=== PATIENT | female | born 1980 | race Caucasian/White ===

== ENCOUNTER 2020-01-26 17:03 | Emergency (ER) | payer OTHER, SELFPAY ==
[2020-01-26] VITALS (9 sets, daily range): BP systolic 191–233; BP diastolic 88–127; PULSE 81–112; RESP 10–29; TEMP 37.2; O2SAT 97–98; BMI 43.2
[2020-01-26] MEDS: KETOROLAC 60 MG/2 ML VIAL 30 MG IM (17:43)
--- NOTE | 2020-01-26 17:57 | ED_ITS ---
HPI - Headache <DESTINI Wallis - Last Filed: 01/26/20 20:39> General Chief Complaint: Headache Stated Complaint: Sharp Pain Base of Head, Lt Side Time Seen by Provider: 01/26/20 17:12 Mode of arrival: Ambulatory Limitations: no limitations History of Present Illness HPI Narrative: 40-year-old female presents to the emergency department complaining of gradual onset left sided neck pain that she is up the side of her neck and into the front of her forehead. She states this pain has been ongoing for the past week and denies significant relief of pain with with Tylenol or ibuprofen. Patient states the pain is worse when she moves her head to the right. Patient reports a sharp stabbing 4/10. Patient denies any blurry vision, vision changes, severe pain, sudden onset of pain, syncope, chest pain, fevers, shortness of breath, IV drug use, nausea, vomiting, diarrhea, or any other concerns. Patient denies any trauma to the area or history of neck issues. Related Data Previous Rx's Medication Instructions Recorded albuterol sulfate [Ventolin HFA] 2 puff INH QID #1 ea 10/12/17 amoxicillin 875 mg-potassium 1 tab PO BID #20 tab 07/27/19 clavulanate 125 mg tablet cyclobenzaprine 10 mg PO BEDTIME PRN #14 tab 01/26/20 Allergies Allergy/AdvReac Type Severity Reaction Status Date / Time No Known Drug Allergies Allergy Verified 01/26/20 17:23 Review of Systems <DESTINI Wallis - Last Filed: 01/26/20 20:39> Review of Systems Narrative: REVIEW OF SYSTEMS: GENERAL: Denies fever or chills. HENT: Reports headache, see HPI. EYES: No loss of vision, double vision, eye pain, or irritation. CARDIOVASCULAR: No chest pain or syncope. RESPIRATORY: No shortness of breath or cough. GASTROINTESTINAL: No nausea, vomiting, diarrhea, or constipation. GENITOURINARY: No flank pain or dysuria. MUSCULOSKELETAL: No pain, weakness, or deformities. INTEGUMENTARY: No rash, lesions, or pruritus. NEURO: No numbness, tingling, memory loss, or confusion. PSYCH: No behavior or mood changes. Patient History <DESTINI Wallis - Last Filed: 01/26/20 20:39> Surgical History Status post delivery (09/07/98) Status post delivery (05/05/02) Family History Mother Age: 64 Diabetes mellitus Hypertension MS (multiple sclerosis) Social History Smoking Status: Unknown if ever smoked Smoking Status: Unknown if ever smoked alcohol intake frequency: holidays/special occasions only Substance Use Type: does not use Exam <DESTINI Wallis - Last Filed: 01/26/20 20:39> Initial Vital Signs Initial Vital Signs: Vital Signs Temperature 98.9 F 01/26/20 17:13 Pulse Rate 112 H 01/26/20 17:13 Respiratory Rate 15 01/26/20 17:13 Blood Pressure 233/127 H 01/26/20 17:13 Pulse Oximetry 98 01/26/20 17:13 PHYSICAL EXAMINATION: GENERAL: Well groomed, alert, and cooperative. Answers questions promptly and appropriately. Vital signs noted. HENT: Normocephalic. Ear canals patent. Oral mucosa is pink and moist. Tendern ess to palpation of left occipital area. EYES: PERRLA, EOMIs, conjunctiva pink, sclera white, no periorbital swelling. NECK: Full ROM, no midline or spinal tenderness. CARDIOVASCULAR: S1 and S2 sounds normal. Regular rate and rhythm, no murmurs, clicks, or bruits. RESPIRATORY: Normal respiratory rate, trachea midline, airway patent. No stridor, nasal flaring or accessory muscle use. Lungs are clear in all oneil without wheeze, rhonchi, or crackles. MUSCULOSKELETAL: Normal gait and coordination. Equal tone and mass bilaterally. Equal strength bilaterally to upper and lower extremities. No spinal tenderness. EXTREMITIES: CMS intact. Moves all extremities. SKIN: Warm, dry, soft, appropriate color for ethnicity. No lesions, rashes, or wounds to visualized areas. NEURO: Alert and Oriented X 3. GCS: 15. Good coordination. No ataxia, or sensory deficits, or cognitive issues. Cranial Nerves: II: Visual oneil grossly intact. III & IV & : EOMIs V: Able to open and close jaw. VII: Facial movements symetrical. Able to close eyelids tightly. VIII: Hearing grossly intact, adequate balance. X: Uvula pronation intact. XI: Patient is able to shrug shoulders. XII: Patient is able to stick out tongue and move it side to side. PSYCH: Appropriate affect and mood. <Christian Cabrera DO - Last Filed: 01/26/20 21:44> Initial Vital Signs Initial Vital Signs: Vital Signs Temperature 98.9 F 01/26/20 17:13 Pulse Rate 112 H 01/26/20 17:13 Respiratory Rate 15 01/26/20 17:13 Blood Pressure 233/127 H 01/26/20 17:13 Pulse Oximetry 98 01/26/20 17:13 Course <DESTINI Wallis - Last Filed: 01/26/20 20:39> Course Course Narrative: Patient reports significant improvement of pain after administration of Toradol. Discussed using muscle relaxers to help with tension headache, patient was given a prescription as she drove herself to the hospital. Orders Ordered: ED Orders 01/26/20 17:17 Urine Culture Stat Urine Microscopic Stat 01/26/20 17:42 EKG-12 Lead Routine Discontinued Medications Ketorolac Tromethamine (Toradol) 30 mg IM NOW ONE Stop: 01/26/20 17:33 Last Admin: 01/26/20 17:43 Dose: 30 mg Documented by: KORINA Vital Signs Vital signs: Vital Signs - 8 hr 01/26/20 17:13 01/26/20 17:24 01/26/20 17:30 Temperature 98.9 F Pulse Rate 112 H 106 H 103 H Respiratory Rate 15 28 H 17 Blood Pressure 233/127 H Pulse Oximetry 98 98 98 01/26/20 17:31 01/26/20 18:00 01/26/20 18:01 Temperature Pulse Rate 101 H 81 88 Respiratory Rate 28 H 27 H 29 H Blood Pressure 226/106 H 202/88 H Pulse Oximetry 98 97 97 01/26/20 18:30 01/26/20 18:31 01/26/20 18:59 Temperature Pulse Rate 83 84 96 H Respiratory Rate 22 10 L Blood Pressure 203/93 H 191/102 H Pulse Oximetry 97 97 98 <Christian Cabrera DO - Last Filed: 01/26/20 21:44> Orders Ordered: ED Orders 01/26/20 17:17 Urine Culture Stat Urine Microscopic Stat 01/26/20 17:42 EKG-12 Lead Routine Discontinued Medications Ketorolac Tromethamine (Toradol) 30 mg IM NOW ONE Stop: 01/26/20 17:33 Last Admin: 01/26/20 17:43 Dose: 30 mg Documented by: KORINA Vital Signs Vital signs: Vital Signs - 8 hr 01/26/20 17:13 01/26/20 17:24 01/26/20 17:30 Temperature 98.9 F Pulse Rate 112 H 106 H 103 H Respiratory Rate 15 28 H 17 Blood Pressure 233/127 H Pulse Oximetry 98 98 98 01/26/20 17:31 01/26/20 18:00 01/26/20 18:01 Temperature Pulse Rate 101 H 81 88 Respiratory Rate 28 H 27 H 29 H Blood Pressure 226/106 H 202/88 H Pulse Oximetry 98 97 97 01/26/20 18:30 01/26/20 18:31 01/26/20 18:59 Temperature Pulse Rate 83 84 96 H Respiratory Rate 22 10 L Blood Pressure 203/93 H 191/102 H Pulse Oximetry 97 97 98 MDM - Headache <Adriana DESTINI Gr - Last Filed: 01/26/20 20:39> Medical Records Attestation: I reviewed the patient's medical records. Lab Data Attestation: I reviewed the patient's lab results. Labs: Lab Results 01/26/20 Range/Units 17:17 Urine RBC 0-1/hpf (0-5/HPF) Urine WBC 5-10/hpf H (0-5/HPF) Ur Squamous Epith Cells 1-5 /hpf (0-5/HPF) Ur Transition Epith Cell 1-5/hpf (0-5/HPF) Urine Bacteria Few (2-10) H (None) Ur Culture Indicated? Specimen cultured Point of Care Testing Test Results Negative Urine Dip Bedside Urine Glucose Negative Bedside Urine Bilirubin - Negative Bedside Urine Ketone - Negative Urine Specific Buhl 1.020 Bedside Urine Occult Blood - Negative Bedside Urine pH 6.0 Bedside Urine Protein +/- 15 Bedside Urine Urobilinogen - Negative Bedside Urine Nitrite - Negative Bedside Urine Leukocytes +++ 500 Esterase ECG Data Interpretation: 1742: Sinus rhythm, rate 88, AL interval 140, QTC 476. No ST elevation or ST depression. No ectopy. No T-wave abnormality. EKG also viewed by Dr. Tejada per protocol. [facility] Narrative Medical decision making narrative: 40-year-old female presents to the emergency department for left-sided headache. Due to patient's description of pain and improvement with Toradol, I suspect patient's pain is most likely related to a tension headache. Differential also includes neck strain as pain is worse when she rotates her head to the right. Less likely hypertensive crisis as patient is neurologically intact, pain decreased after Toradol, and Patient has a history of elevated hypertension as noted in July per [facility] visit, no vision changes. Patient was counseled about her blood pressure, informed to follow up with her primary care provider and monitor blood pressure closely as it is elevated today. Unsure exact cause of slight tachycardia noted on admission, however rate was significantly decreased when patient was sitting in bed for a few minutes. This may due to ambulation with obesity or dehydration, patient was given p.o. fluids which improved her rate is well. No signs of infection such as fevers, erythema, significant tenderness, or hemodynamic instability. Return precautions given for new or worsening symptoms. Patient agreed to plan of care as understanding. <Christian Cabrera, DO - Last Filed: 01/26/20 21:44> Lab Data Labs: Lab Results 01/26/20 Range/Units 17:17 Urine RBC 0-1/hpf (0-5/HPF) Urine WBC 5-10/hpf H (0-5/HPF) Ur Squamous Epith Cells 1-5 /hpf (0-5/HPF) Ur Transition Epith Cell 1-5/hpf (0-5/HPF) Urine Bacteria Few (2-10) H (None) Ur Culture Indicated? Specimen cultured Point of Care Testing Test Results Negative Urine Dip Bedside Urine Glucose Negative Bedside Urine Bilirubin - Negative Bedside Urine Ketone - Negative Urine Specific Buhl 1.020 Bedside Urine Occult Blood - Negative Bedside Urine pH 6.0 Bedside Urine Protein +/- 15 Bedside Urine Urobilinogen - Negative Bedside Urine Nitrite - Negative Bedside Urine Leukocytes +++ 500 Esterase Discharge Plan Departure Patient Disposition: Home Clinical Impression: Headache Qualifiers: Headache type: tension-type Headache chronicity pattern: acute headache Intractability: not intractable Qualified Code(s): G44.209 - Tension-type headache, unspecified, not intractable Neck strain Qualifiers: Encounter type: initial encounter Qualified Code(s): S16.1XXA - Strain of muscle, fascia and tendon at neck level, initial encounter Discharge Date/Time: 01/26/20 19:00 Instructions: DI for Headache Activity Restrictions/Additional Instructions: Thank you for entrusting me with your care today. As discussed, have given you a prescription for a muscle relaxer. This medication can make you drowsy, do not drive while taking this medication. Your prescription was sent to [facility] in [place]. Suggest taking Tylenol and ibuprofen over the next few days every 8 hours around the clock despite significant pain this will help your headache decrease in severity. Please follow-up with your primary care provider in 1-2 weeks for further evaluation. Return emergency department for any new or worsening symptoms such as blurry vision, facial droop, high fevers, uncontrollable vomiting, or any other concerns. Prescriptions: New cyclobenzaprine 10 mg tablet 10 mg PO BEDTIME PRN (Reason: muscle spasm) Qty: 14 RF: 0 No Action amoxicillin-pot clavulanate [Augmentin] 875-125 mg tablet 1 tab PO BID Qty: 20 RF: 0 albuterol sulfate [Ventolin HFA] 90 MCG/PUFF HFA aerosol inhaler 2 puff INH QID Qty: 1 RF: 0 Referrals: Kaylah Tamayo ARNP [Primary Care Provider] - <Christian Cabrera DO - Last Filed: 01/26/20 21:44> Cosign ED Attending Cosignature Attestation: Dr Cabrera Co-Sign Statement: I was available for consultation during this patient's emergency department visit. This chart is signed by myself for administrative purposes only. I did not have direct contact with this patient during this visit. They were seen independently by the APC.
[2020-01-26 17:59] LABS: Bacteria Urine Few (2-10); Culture Indicated Urine Specimen Cultured; RBC Urine 0-1/HPF (0-5/HPF); Squamous Epithelial Cell Urine 1-5 /HPF (0-5/HPF); Transitional Epi Cells Urine 1-5/HPF (0-5/HPF); WBC Urine 5-10/HPF (0-5/HPF)
== END 2020-01-26 19:00 | disposition home or self-care (01) ==
PROVIDERS: Emergency Provider Nurse Practitioner; Family Provider Internal Medicine; PCP Internal Medicine
DX: G44.209 Tension-type headache, unspecified, not intractable (principal); S16.1XXA Strain of muscle, fascia and tendon at neck level, initial encounter
CPT/HCPCS: 81003; 81015; 81025; 87086; 93005; 93010; 96372; 99283; J1885

== ENCOUNTER → 2020-02-02 09:32 | Outpatient (CLI) | payer OTHER, SELFPAY ==
[2020-02-02 10:28] LABS: Add Manual Diff / Slide Review NO; Basophils Absolute Auto 100 /uL (0-100); Basophils Percent Auto 1.3 % (0-2); Eosinophils Absolute Auto 300 /uL (0-450); Eosinophils Percent Auto 4.5 % (2-4); Hematocrit 31.9 % (36-46); Lymphocytes Absolute Auto 1400 /uL (1100-4500); Lymphocytes Percent Auto 19.4 % (25-40); Mean Corpuscular HGB Conc 31.5 % (30-36); Mean Corpuscular Hemoglobin 24.6 PG (26-34); Mean Corpuscular Volume 78.2 fL (80-100); Monocytes Absolute Auto 500 /uL (0-900); Monocytes Percent Auto 7.3 % (3-14); Neutrophils Absolute Auto 4800 /uL (1500-7000); Neutrophils Percent Auto 67.5 % (50-75); Platelet Count 244 X10^3/uL (150-400); Red Blood Cell Count 4.07 X10^6/uL (4.0-5.2); Red Cell Distribution Width 18.3 % (11.6-14.8); White Blood Cell Count 7.1 X10^3/uL (4.5-11.0)
[2020-02-02 11:03] LABS: Alanine Aminotransferase 32 IU/L (<35); Albumin Globulin Ratio 1.2 (1.0-2.8); Alkaline Phosphatase 99 U/L (38-126); Aspartate Aminotransferase 38 IU/L (14-36); BUN Creatinine Ratio 14.8 (6-22); Bilirubin Total 0.4 mg/dL (0.2-1.3); Blood Urea Nitrogen 9 mg/dL (7-17); Calcium 8.9 mg/dL (8.4-10.2); Carbon Dioxide 30 mmol/L (22-32); Chloride 104 mmol/L (98-107); Cholesterol 166 mg/dL (140-199); Estimated Glomerular Filt Rate > 60.0 mL/min (>60); Globulin 3.3 g/dL (1.7-4.1); Glucose 106 mg/dL (70-100); HDL Cholesterol 32 mg/dL (40-60); HEMOLYSIS < 15 (0-50); LDL Cholesterol Calculated 101 mg/dL (<100); Potassium 5.1 mmol/L (3.4-5.1); Sodium 138 mmol/L (137-145); Total Protein 7.3 g/dL (6.3-8.2); Triglycerides 165 mg/dL (35-150)
[2020-02-02 11:31] LABS: TSH w/ Reflex to FT4 1.88 uIU/mL (0.47-4.68)
== END ==
PROVIDERS: Family Provider Internal Medicine; PCP Registered Nurse Diabetes Educator; Referring Provider Registered Nurse Diabetes Educator; Visit Provider Registered Nurse Diabetes Educator
DX: I10 Essential (primary) hypertension (principal)
CPT/HCPCS: 36415; 80053; 80061; 84443; 85025

== ENCOUNTER → 2020-04-01 14:44 | Outpatient (ROUT) | payer OTHER, SELFPAY ==
[2020-04-02 17:36] LABS: COVID19 Sendout Not Detected (Not Detected)
== END ==
PROVIDERS: Family Provider Internal Medicine; PCP Registered Nurse Diabetes Educator; Visit Provider Internal Medicine
DX: Z11.59 Encounter for screening for other viral diseases (principal)
CPT/HCPCS: 87635

== ENCOUNTER → 2020-04-29 07:36 | Outpatient (CLI) | payer OTHER, SELFPAY ==
[2020-04-29 08:37] LABS: Add Manual Diff / Slide Review NO; Basophils Absolute Auto 100 /uL (0-100); Basophils Percent Auto 1.2 % (0-2); Eosinophils Absolute Auto 400 /uL (0-450); Eosinophils Percent Auto 4.6 % (2-4); Hematocrit 35.9 % (36-46); Hemoglobin 11.9 g/dL (12.0-16.0); Lymphocytes Absolute Auto 1900 /uL (1100-4500); Lymphocytes Percent Auto 24.4 % (25-40); Mean Corpuscular Hemoglobin 29.9 PG (26-34); Mean Corpuscular Volume 90.5 fL (80-100); Monocytes Absolute Auto 600 /uL (0-900); Monocytes Percent Auto 7.3 % (3-14); Neutrophils Absolute Auto 4900 /uL (1500-7000); Neutrophils Percent Auto 62.5 % (50-75); Platelet Count 233 X10^3/uL (150-400); Red Blood Cell Count 3.97 X10^6/uL (4.0-5.2); Red Cell Distribution Width 16.5 % (11.6-14.8); White Blood Cell Count 7.8 X10^3/uL (4.5-11.0)
[2020-04-29 08:54] LABS: Alanine Aminotransferase 21 IU/L (<35); Albumin 4.1 g/dL (3.5-5.0); Alkaline Phosphatase 86 U/L (38-126); Aspartate Aminotransferase 24 IU/L (14-36); BUN Creatinine Ratio 21.5 (6-22); Bilirubin Total 0.4 mg/dL (0.2-1.3); Blood Urea Nitrogen 14 mg/dL (7-17); Calcium 8.6 mg/dL (8.4-10.2); Carbon Dioxide 25 mmol/L (22-32); Chloride 106 mmol/L (98-107); Cholesterol 164 mg/dL (140-199); Estimated Glomerular Filt Rate > 60.0 mL/min (>60); Glucose 107 mg/dL (70-100); HDL Cholesterol 23 mg/dL (40-60); HEMOLYSIS < 15 (0-50); LDL Cholesterol Calculated 107 mg/dL (<100); Potassium 4.1 mmol/L (3.4-5.1); Sodium 138 mmol/L (137-145); Total Protein 8.1 g/dL (6.3-8.2); Triglycerides 171 mg/dL (35-150)
[2020-04-29 09:43] LABS: Hemoglobin A1C% w Est Avg Glu 5.1 % (4.0-6.0)
== END ==
PROVIDERS: Family Provider Internal Medicine; PCP Registered Nurse Diabetes Educator; Referring Provider Registered Nurse Diabetes Educator; Visit Provider Registered Nurse Diabetes Educator
DX: E66.9 Obesity, unspecified (principal); E78.5 Hyperlipidemia, unspecified; E88.81 Metabolic syndrome and other insulin resistance; I10 Essential (primary) hypertension; R73.01 Impaired fasting glucose
CPT/HCPCS: 36415; 80053; 80061; 83036; 85025

== ENCOUNTER → 2020-05-10 09:52 | Outpatient (CLI) | payer OTHER, SELFPAY ==
--- NOTE | 2020-05-10 10:02 | DIET.PN ---
Dietary Progress Note Assessment: 40y F referred to nutrition by PCP for dietary strategies to manage metabolic syndrome. Pt is using medication to control HTN, has elevated FBG 103, elevated LDL 107 H, low HDL 23 L c BMI 42.3. 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 Pt feels she is overeating carbohydrates per using phone candida in past indicating low kcal intake but high CHO intake. Pt has made several changes since seeing PCP: not so many tortillas, using brown rice instead of white, trying to drink more water, switching from breve mocha to 2% milk mocha c half the chocolate Usual Work Day: wakes 530 630am: iced 2% mocha c half chocolate 10am: at work, piece toast c butter and jelly (from home) 3pm: cold sandwich- lettuce, tomato, cucumbers; leftovers from dinner, sometimes chips gets off work 730pm go home, sometimes grab snack otherwise just to bed goes to sleep 10:30pm, good sleep quality Usual Day off: wakes 730am goes get coffee 1130 lunch: sandwich, leftovers Dinners: chicken deepa c noodles, chicken mole c rice, chicken fajitas Pt endorses boredom eating and not having will power with break room treats. Pt lives c 18y daughter who is picky eater and likes fast food: [employer], [place] salad Pt not currently doing intentional exercise, is looking into [employer] at the local gym. HT: 5'6 WT: 262# (weight goal 200#) UBW: 276# BMI: 42.3 Labs: TG 171 H, TC 164, LDL 107 H, HDL 23 L, FBG 103 H, A1c 5.1 Nutrition Diagnosis: altered nutrition related laboratory values r/t undesirable food choices and physical inactivity aeb pt dx c metabolic dz c associated labs listed above, BMI 42.3, pt reports high intake carbohydrate foods (tortillas, rice, chocolate, chips, bread), pt has no intentional physical activity. Interventions: 1. Educated pt on healthy plate balance using handout including 1/4 PRO, 1/4 CHO, and 1/2 F/V. Used food models to optimize current meals of pts to better fit balanced plate. Pt will go home and use this method to problem solve meals and snacks. 2. Educated pt on hunger scale. Pt reports often waiting too long to eat then making poor choices that are high in CHO and overeating leading to shame thoughts. Encouraged pt to use Hunger Scale to eat when 3 and stop when 8 most of the time. Pt reports eating at 5 when bored, discussed finding alternate activities when feeling this emotion. 3. To address low HDL and high LDL, encouraged pt to switch to avocado oil and olive oil for all cooking. 4. Pt reports not drinking enough water, doesn't mind water, but curious of flavorings which would be healthy to add to water to encourage more intake, provided sample of true lemon. 5. Pt reports high CHO snack intake, collaborated c pt on ways to have healthy quick items on hand which will support health. Focus on pro and F/V options including yogurt, cheese, f/v c healthy dip like yogurt ranch, hummus, avocado. 6. To address high lipids and body weight, encouraged increased intake of soluble fiber. Pt enjoys beans, will consume more black beans throughout the week and will try hummus. 7. To make better meal planning choices, introduced pt to method for meal planning and eating well website to follow balanced plate approach. 8. Pt enjoys smoothies but unsure how to make them so they follow plate balance, provided smoothie formula handout. Monitoring/Evaluations: f/u in 4w to assess progress and problem solve barriers.
== END ==
PROVIDERS: Family Provider Internal Medicine; PCP Registered Nurse Diabetes Educator; Referring Provider Registered Nurse Diabetes Educator; Visit Provider Registered Nurse Diabetes Educator
DX: E88.81 Metabolic syndrome and other insulin resistance (principal); I10 Essential (primary) hypertension; R73.9 Hyperglycemia, unspecified; E66.9 Obesity, unspecified; Z68.41 Body mass index [BMI] 40.0-44.9, adult; Z71.3 Dietary counseling and surveillance
CPT/HCPCS: 97802

== ENCOUNTER → 2020-06-07 10:19 | Outpatient (CLI) | payer OTHER, SELFPAY ==
--- NOTE | 2020-06-07 10:26 | DIET.PN ---
Dietary Progress Note Assessment: 40y F f/u c RD for metabolic disease. Pt is net -18# since her PCP visit and -3# since our visit 1mo ago. Pt reports good progress since last visit 1mo ago. Pt weighs herself daily, has not reverted back to her old coffee drinks (subbed 2% milk for breve, half chocolate), and is drinking only 2-3 coffees per week rather than 7. 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 She feels this is actually helping her progress with weight loss and healthy eating as she sees people ordering fast food to their home in evenings and late at night. Pt has been eating fewer carbs trying to maintain plate balance. Pt purchased avocado oil and olive oil for cooking. BP is still a little high but HR is in 70s. Pt has not initiated an intentional work out routine yet, holding off on gym membership due to covid shutdown. HT: 5'6 WT: 259# (-3# since last visit) Interventions: 1. Encouraged pt in her good work so far. Pt is showing good insight and making appropriate changes for retirement success. 2. Discussed adding physical activity routine to help further improvement. Discussed options on youtube, [email or web address], using step counter. Pt goal is to trial several options to create a plan that will work for her. Monitoring/Evaluations: f/u in 2mo to assess progress and problem solve barriers.
== END ==
PROVIDERS: Family Provider Internal Medicine; PCP Registered Nurse Diabetes Educator; Referring Provider Registered Nurse Diabetes Educator; Visit Provider Registered Nurse Diabetes Educator
DX: E88.9 Metabolic disorder, unspecified (principal); R03.0 Elevated blood-pressure reading, without diagnosis of hypertension; Z71.3 Dietary counseling and surveillance
CPT/HCPCS: 97803

== ENCOUNTER → 2020-08-02 09:59 | Outpatient (CLI) | payer OTHER, SELFPAY ==
[2020-08-02 10:45] LABS: Add Manual Diff / Slide Review NO; Basophils Absolute Auto 100 /uL (0-100); Basophils Percent Auto 1.2 % (0-2); Eosinophils Absolute Auto 300 /uL (0-450); Eosinophils Percent Auto 4.1 % (2-4); Hematocrit 36.2 % (36-46); Hemoglobin 11.9 g/dL (12.0-16.0); Lymphocytes Absolute Auto 1600 /uL (1100-4500); Lymphocytes Percent Auto 20.7 % (25-40); Mean Corpuscular HGB Conc 32.9 % (30-36); Mean Corpuscular Hemoglobin 30.3 PG (26-34); Mean Corpuscular Volume 92.1 fL (80-100); Monocytes Absolute Auto 600 /uL (0-900); Monocytes Percent Auto 7.3 % (3-14); Neutrophils Absolute Auto 5100 /uL (1500-7000); Neutrophils Percent Auto 66.7 % (50-75); Platelet Count 218 X10^3/uL (150-400); Red Blood Cell Count 3.93 X10^6/uL (4.0-5.2); Red Cell Distribution Width 15.1 % (11.6-14.8); White Blood Cell Count 7.6 X10^3/uL (4.5-11.0)
[2020-08-02 11:04] LABS: BUN Creatinine Ratio 18.1 (6-22); Blood Urea Nitrogen 13 mg/dL (7-17); Calcium 8.7 mg/dL (8.4-10.2); Carbon Dioxide 30 mmol/L (22-32); Chloride 103 mmol/L (98-107); Estimated Glomerular Filt Rate > 60.0 mL/min (>60); Glucose 101 mg/dL (70-100); HEMOLYSIS < 15 (0-50); Potassium 4.6 mmol/L (3.4-5.1); Sodium 136 mmol/L (137-145)
== END ==
PROVIDERS: Family Provider Internal Medicine; PCP Registered Nurse Diabetes Educator; Referring Provider Registered Nurse Diabetes Educator; Visit Provider Registered Nurse Diabetes Educator
DX: E88.81 Metabolic syndrome and other insulin resistance (principal); I10 Essential (primary) hypertension; R73.01 Impaired fasting glucose
CPT/HCPCS: 36415; 80048; 83036; 85025

== ENCOUNTER → 2020-08-02 10:00 | Outpatient (CLI) | payer OTHER, SELFPAY ==
--- NOTE | 2020-08-02 10:16 | DIET.PN ---
Dietary Progress Note 40y F attending third nutrition visit for management of metabolic disease. Pt got labs drawn before our meeting. Pt has been progressing very well throughout the past few months. She has drastically changed her eating habits with no more sugary coffees, drastically reduced fast food intake, intentional intake of healthier fats (avocado, avocado oil, olive oil), and moderating her previously high refined carb diet (rice or tortillas, not both, etc). Pt feels the holidays weren't great, but she has gotten back on track. Pt continues to work [employer] in evenings which helps her to curb evening boredom eating and decreases sedentary time. Pt has been tracking her steps with her iwatch and intentionally increases them if she notices they are low. Pt got new phone so has not been tracking for past week because the [employer] is helping her to sync the devices. RD provided pt with waistband step counter to use until her phone is back in order. Nutrition Diagnosis: Resolving altered nutrition related laboratory values r/t undesirable food choices and physical inactivity aeb pt dx c metabolic dz c associated labs listed above, BMI 42.3, pt reports high intake carbohydrate foods (tortillas, rice, chocolate, chips, bread), pt has no intentional physical activity. Pt's goal she is actively working on now is fitting in regular physical activity and creating habits around that activity. Considering joining gym. F/u in 3mo to assess progress and problem solve barriers. Pt would like to pair RD visits with lab draws.
== END ==
PROVIDERS: Family Provider Internal Medicine; PCP Registered Nurse Diabetes Educator; Referring Provider Registered Nurse Diabetes Educator; Visit Provider Registered Nurse Diabetes Educator
DX: E88.81 Metabolic syndrome and other insulin resistance (principal); I10 Essential (primary) hypertension; R73.01 Impaired fasting glucose
CPT/HCPCS: 36415; 80048; 83036; 85025; 97803

== ENCOUNTER → 2021-04-24 08:20 | Outpatient (CLI) | payer OTHER, SELFPAY ==
[2021-04-24 09:18] LABS: Hematocrit 36.8 % (36-46); Mean Corpuscular HGB Conc 32.6 % (30-36); Mean Corpuscular Volume 91.8 fL (80-100); Platelet Count 232 X10^3/uL (150-400); Red Blood Cell Count 4.01 X10^6/uL (4.0-5.2); White Blood Cell Count 6.3 X10^3/uL (4.5-11.0)
[2021-04-24 09:48] LABS: Alanine Aminotransferase 31 IU/L (<35); Albumin 4.2 g/dL (3.5-5.0); Albumin Globulin Ratio 1.2 (1.0-2.8); Alkaline Phosphatase 79 U/L (38-126); Aspartate Aminotransferase 32 IU/L (14-36); BUN Creatinine Ratio 26.4 (6-22); Bilirubin Total 0.4 mg/dL (0.2-1.3); Blood Urea Nitrogen 14 mg/dL (7-17); Carbon Dioxide 29 mmol/L (22-32); Chloride 103 mmol/L (98-107); Cholesterol 189 mg/dL (140-199); Estimated Glomerular Filt Rate > 60.0 mL/min (>60); Globulin 3.5 g/dL (1.7-4.1); Glucose 103 mg/dL (70-100); HDL Cholesterol 28 mg/dL (40-60); HEMOLYSIS < 15 (0-50); LDL Cholesterol Calculated 114 mg/dL (<100); Potassium 4.4 mmol/L (3.4-5.1); Sodium 138 mmol/L (137-145); Total Protein 7.7 g/dL (6.3-8.2); Triglycerides 237 mg/dL (35-150)
[2021-04-24 10:18] LABS: TSH w/ Reflex to FT4 3.12 uIU/mL (0.47-4.68)
== END ==
PROVIDERS: Family Provider Internal Medicine; PCP Registered Nurse Diabetes Educator; Referring Provider Registered Nurse Diabetes Educator; Visit Provider Registered Nurse Diabetes Educator
DX: D50.9 Iron deficiency anemia, unspecified (principal); E78.5 Hyperlipidemia, unspecified; E88.81 Metabolic syndrome and other insulin resistance; I10 Essential (primary) hypertension; R73.01 Impaired fasting glucose
CPT/HCPCS: 36415; 80053; 80061; 83036; 84443; 85027

== ENCOUNTER → 2021-05-28 08:54 | Outpatient (CLI) | payer OTHER, SELFPAY | PROVIDERS: Family Provider Internal Medicine; PCP Registered Nurse Diabetes Educator; Visit Provider Registered Nurse Diabetes Educator | DX: R10.9 Unspecified abdominal pain (principal) | CPT/HCPCS: 87077; 87086; 87186 ==

== ENCOUNTER → 2021-10-09 08:34 | Outpatient (CLI) | payer OTHER, SELFPAY ==
[2021-10-09 09:34] LABS: Hematocrit 35.8 % (36-46); Hemoglobin 12.2 g/dL (12.0-16.0); Mean Corpuscular Hemoglobin 31.2 PG (26-34); Mean Corpuscular Volume 91.6 fL (80-100); Platelet Count 213 X10^3/uL (150-400); Red Blood Cell Count 3.91 X10^6/uL (4.0-5.2); Red Cell Distribution Width 15.1 % (11.6-14.8); White Blood Cell Count 6.4 X10^3/uL (4.5-11.0)
[2021-10-09 09:36] LABS: Hemoglobin A1C% w Est Avg Glu 4.9 % (4.0-6.0)
[2021-10-09 10:14] LABS: Alanine Aminotransferase 29 IU/L (<35); Albumin 4.2 g/dL (3.5-5.0); Albumin Globulin Ratio 1.1 (1.0-2.8); Alkaline Phosphatase 74 U/L (38-126); Aspartate Aminotransferase 33 IU/L (14-36); BUN Creatinine Ratio 17.7 (6-22); Bilirubin Total 0.4 mg/dL (0.2-1.3); Blood Urea Nitrogen 11 mg/dL (7-17); Calcium 8.5 mg/dL (8.4-10.2); Carbon Dioxide 26 mmol/L (22-32); Chloride 105 mmol/L (98-107); Cholesterol 190 mg/dL (140-199); Estimated Glomerular Filt Rate > 60.0 mL/min (>60); Globulin 3.8 g/dL (1.7-4.1); Glucose 108 mg/dL (70-100); HDL Cholesterol 28 mg/dL (40-60); HEMOLYSIS < 15 (0-50); LDL Cholesterol Calculated 131 mg/dL (<100); Potassium 4.2 mmol/L (3.4-5.1); Sodium 140 mmol/L (137-145); Triglycerides 157 mg/dL (35-150)
[2021-10-09 12:42] LABS: TSH w/ Reflex to FT4 2.34 uIU/mL (0.47-4.68)
== END ==
PROVIDERS: Family Provider Internal Medicine; PCP Registered Nurse Diabetes Educator; Referring Provider Registered Nurse Diabetes Educator; Visit Provider Registered Nurse Diabetes Educator
DX: D50.9 Iron deficiency anemia, unspecified (principal); E78.5 Hyperlipidemia, unspecified; I10 Essential (primary) hypertension; R73.01 Impaired fasting glucose
CPT/HCPCS: 36415; 80053; 80061; 83036; 84443; 85027

== ENCOUNTER → 2022-06-03 06:44 | Outpatient (CLI) | payer OTHER, SELFPAY ==
--- NOTE | 2022-06-03 06:46 | DI.US.S_ITS ---
PROCEDURE: US PELVIC COMPLETE INDICATIONS: HEAVY MENSES TECHNIQUE: Real-time scanning was performed of the pelvic organs, with image documentation. Additional endovaginal scanning was necessary due to incomplete visualization of the adnexal and endometrial structures by transabdominal scanning. COMPARISON: None. FINDINGS: Uterus: Uterus is anteverted and normal in size at 8.8 x 5.4 x 5.8 cm. The myometrium is homogeneous. The endometrium measures 14.2 mm combined thickness. The cervix appears normal. No suspicious vascular flow. Ovaries: The right ovary measures 2.0 x 3.8 x 1.9 cm, with a calculated ovarian volume of 7.7 cc. The left ovary measures 3.9 x 2.1 x 2.4 cm, with a calculated ovarian volume of 10.0 cc. The ovaries have a normal sonographic appearance. Both ovaries contain a single dominant follicle. Left follicle measures up to 2.4 cm on the right measures 1.8 cm in maximal diameter. No adnexal masses are seen. Other: No pathologic free abdominal or pelvic fluid. IMPRESSION: 1. Endometrium is of normal thickness for premenopausal female. 2. No suspicious uterine mass. 3. Normal ovaries each containing a dominant follicle. We strive to produce accurate, complete, and clear reports of imaging services. To assist us in improving patient care, this report was composed using standard report templates and voice recognition software. Therefore, it may contain abnormal punctuation, insertions and/or omissions. Occasional wrong-word or sound-alike substitutions may occur. Though we review the report and make efforts to correct it, we do recommend that the report be read carefully in proper context to recognize any text inaccuracies. Dictated by: Vilma Foote M.D. on 06/03/2022 at 10:29 Approved by: Vilma Foote M.D. on 06/03/2022 at 10:31
== END ==
PROVIDERS: Family Provider Internal Medicine; PCP Registered Nurse Diabetes Educator; Referring Provider Obstetrics & Gynecology; Visit Provider Obstetrics & Gynecology
DX: N92.0 Excessive and frequent menstruation with regular cycle (principal)
CPT/HCPCS: 76830; 76856

== ENCOUNTER → 2022-09-11 09:02 | Outpatient (CLI) | payer OTHER, SELFPAY ==
[2022-09-11 09:56] LABS: Hematocrit 35.2 % (36-46); Hemoglobin 11.6 g/dL (12.0-16.0); Mean Corpuscular Hemoglobin 30.2 PG (26-34); Mean Corpuscular Volume 91.4 fL (80-100); Platelet Count 238 X10^3/uL (150-400); Red Blood Cell Count 3.85 X10^6/uL (4.0-5.2); White Blood Cell Count 6.5 X10^3/uL (4.5-11.0)
[2022-09-11 10:05] LABS: Alanine Aminotransferase 26 IU/L (<35); Albumin 4.2 g/dL (3.5-5.0); Albumin Globulin Ratio 1.2 (1.0-2.8); Alkaline Phosphatase 85 U/L (38-126); Aspartate Aminotransferase 26 IU/L (14-36); BUN Creatinine Ratio 16.7 (6-22); Bilirubin Total 0.4 mg/dL (0.2-1.3); Blood Urea Nitrogen 11 mg/dL (7-17); Calcium 8.7 mg/dL (8.4-10.2); Carbon Dioxide 27 mmol/L (22-32); Chloride 102 mmol/L (98-107); Cholesterol 186 mg/dL (140-199); Estimated Glomerular Filt Rate > 60 mL/min (>60); Globulin 3.6 g/dL (1.7-4.1); Glucose 105 mg/dL (70-100); HDL Cholesterol 29 mg/dL (40-60); HEMOLYSIS < 15 (0-50); LDL Cholesterol Calculated 115 mg/dL (<100); Potassium 4.5 mmol/L (3.4-5.1); Sodium 138 mmol/L (137-145); Total Protein 7.8 g/dL (6.3-8.2); Triglycerides 210 mg/dL (35-150)
[2022-09-11 10:28] LABS: TSH w/ Reflex to FT4 3.23 uIU/mL (0.47-4.68)
[2022-09-11 12:03] LABS: Hemoglobin A1C% w Est Avg Glu 4.9 % (4.0-6.0)
== END ==
PROVIDERS: Family Provider Internal Medicine; PCP Registered Nurse Diabetes Educator; Referring Provider Registered Nurse Diabetes Educator; Visit Provider Registered Nurse Diabetes Educator
DX: D50.9 Iron deficiency anemia, unspecified (principal); E78.5 Hyperlipidemia, unspecified; E88.81 Metabolic syndrome and other insulin resistance; I10 Essential (primary) hypertension; R73.01 Impaired fasting glucose
CPT/HCPCS: 36415; 80053; 80061; 83036; 84443; 85027

== ENCOUNTER 2022-12-21 08:12 | Day surgery (SDC) | payer OTHER, SELFPAY ==
[2022-12-15 12:24] VITALS: BMI 42.1
[2022-12-21] VITALS (9 sets, daily range): BP systolic 104–120; BP diastolic 49–83; PULSE 89–115; RESP 12–20; TEMP 36.2–36.8; O2SAT 90–100; BMI 42.1
--- NOTE | 2022-12-21 | PATH_ITS ---
[facility] Accession Number: [id number] No. of containers..01 Tissue . 01 Material submitted: . endometrium - ENDOMETRIAL CURRETTAGE . 01 Diagnosis: Endometrial Curettage: Portions of secretory endometrium; negative for significant atypia. Some endometrial fragments demonstrate prominent vessels, suggestive of polyp, if clinical and imaging studies are concordant. MRV 12/25/2022 1238 Local . 01 Electronically signed: . Carolina Hays MD, Pathologist NPI- [id number] . 01 Gross description: . ENDOMETRIAL CURRETTAGE: Received in formalin are minute fragments of mucoid and hemorrhagic material measuring 1.5 x 1.5 x 0.4 cm in aggregate. Submitted in toto in 1 cassette. /LUIS 12/23/2022 0040 Local . 01 Pathologist provided ICD-10: N92.0, N84.0 . 01 CPT . 882227 Specimen Comment: A courtesy copy of this report has been sent to [phone] Performed at: 01 [facility] [address] [place] [address], [place], [place] [id number] MD Александр Maddox MD Phone: [phone]
[2022-12-21] MEDS: LACTATED RINGERS 1,000 ML 100 ML IV (08:44)
--- NOTE | 2022-12-21 09:42 | SUR.OPER ---
Lithotomy on padded OR bed, head on pillow, arms secured on padded arm boards at <90 degrees abduction. Legs secured in padded yellow fins stirrups.
--- NOTE | 2022-12-21 09:50 | PM.PREOP ---
Pre-operative Note COVID-19 Criteria for continued procedure: Non-surgical alternatives not available or appropriate per current SOC Interval Note History & Physical reviewed/Exam performed by Physician: Yes Changes to H&P: No H&P completed within 30 days and has changed as indicated here:: 11/24/22
--- NOTE | 2022-12-21 10:57 | SUR.PHASEI ---
Dr Johnson notified that patient complains of SOB and feels like lungs are a little tight. See order for albuterol.
[2022-12-21] MEDS: ALBUTEROL 2.5 MG/3 ML NEB (ADULT) INH (10:58)
--- NOTE | 2022-12-21 11:07 | P.HPOB_ITS ---
History of Present Illness History of Present Illness Reason for admission: vaginal bleeding (Heavy) Narrative: Chana Colvin is a 42 year old female [facility] Medical History (Updated 11/02/22 @ 11:35 by Tk De Oliveira MD) Dyslipidemia Hypertension (~2019) Impaired fasting glucose Iron deficiency anemia Metabolic syndrome Obesity Surgical History Status post delivery (09/07/98) Status post delivery (05/05/02) Family History Mother Diabetes mellitus Hypertension MS (multiple sclerosis) Sister Diabetes mellitus Hypertension Social History household members: spouse and children Smoking Status: Never smoker alcohol intake: current Meds Home Medications and Allergies Home Medications Medication Instructions Recorded Confirmed Type amlodipine 10 mg-benazepril 20 mg 1 cap PO DAILY #90 caps 09/22/22 12/21/22 Rx capsule ferrous sulfate 325 mg (65 mg 325 mg PO BID 09/22/22 12/21/22 History iron) tablet (FeroSul) metformin 500 mg tablet 500 mg PO BID #180 tabs 09/22/22 12/21/22 Rx misoprostol 200 mcg tablet 400 mcg PO ONCE #2 tabs 11/30/22 12/21/22 Rx Allergies Allergy/AdvReac Type Severity Reaction Status Date / Time No Known Drug Allergies Allergy Verified 12/21/22 08:26 Exam Vital Signs (past 8 hours): - 12/21/22 08:46 12/21/22 10:49 12/21/22 11:03 Temperature 98.2 F 97.1 F L 97.3 F L Pulse Rate 89 115 H 97 H Respiratory Rate 15 17 12 Blood Pressure 114/83 108/60 113/67 Pulse Oximetry 95 99 100 Oxygen Delivery Method Room Air Room Air Oxygen Flow Rate 8 12/21/22 10:53 12/21/22 10:58 Temperature Pulse Rate 108 H 97 H Respiratory Rate 14 14 Blood Pressure 114/49 L 120/76 Pulse Oximetry 97 100 Oxygen Delivery Method Room Air Room Air Oxygen Flow Rate Oxygen Delivery Method Room Air Oxygen Flow Rate 8
--- NOTE | 2022-12-21 11:08 | PM.GYNOP.1 ---
Operative Date/Time/Diagnoses Date of procedure: 12/21/22 Time of procedure: 11:08 Pre-op diagnosis: Menorrhagia Post-op diagnosis: same Procedure & Clinicians Procedure: Procedures Operation Date: 12/21/22 09:45 Actual Procedure Side Surgeon p D&C Hysteroscopy, Endometrial Ablation (novasure) Karina Celaya MD Indications: Menorrhagia Surgeon: Karina Celaya Anesthesia Type: General (LMA) Operative Notes Findings: 7 week size anteverted uterus Thickened endometrial lining No endometrial polyp visualized Closure Type: not applicable Specimen(s): endometrial curettings Estimated blood loss (mL): 10 Blood products transfused: none Procedure in detail: The patient was taken to the operating room where she was placed in the dorsal supine position. After adequate LMA general anesthesia was achieved, she was placed in the dorsal lithotomy position, and prepped and draped in the usual sterile fashion. A time-out was performed. A bivalve speculum was placed into the vagina and the anterior lip of the cervix was grasped with a single-tooth tenaculum. The cervical os was sequentially dilated until the hysteroscope could pass easily into the endometrial cavity. Initial inspection with the hysteroscope revealed no polyp but significantly thickened endometrium. The hysteroscope was removed. Sharp curettage was performed yielding a moderate amount of endometrial curettings. The uterus was measured from the internal os to the fundus and measured 5.5 cm. This was set on the NovaSure catheter and the generator. The catheter passed easily into the endometrial cavity and was opened. The width was 3.5 cm. This indicated a power of 106 w. The cervix was capped, the cavity assessment was performed and passed. The cycle was initiated and lasted 1 minute and 15 seconds. At the completion of the cycle the NovaSure catheter was closed. The cervix was uncapped. The catheter was removed from the uterus. The single-tooth tenaculum was removed from the anterior lip of the cervix. The bivalve speculum was removed from the vagina. Sponge, lap, and instrument counts were correct x2. The patient tolerated the procedure well, and was taken to PACU in stable condition. Complications: none Post-operative Condition: stable Disposition: PACU Plan for aftercare: Home after recovery
[2022-12-21] MEDS: OXYCODONE IR 5 MG TABLET PO (11:27)
== END 2022-12-21 11:43 | disposition home or self-care (01) ==
PROVIDERS: Family Provider Internal Medicine; PCP Registered Nurse Diabetes Educator; Referring Provider Obstetrics & Gynecology; Visit Provider Obstetrics & Gynecology
PROC: 0U5B8ZZ Destruction of Endometrium, Via Natural or Artificial Opening Endoscopic (ICD-10-PCS; CPT 58563; principal; 2022-12-21 09:45)
DX: N92.0 Excessive and frequent menstruation with regular cycle (principal)
CPT/HCPCS: 58563; 82962; J0330; J1100; J1885; J2250; J2405; J2704; J3010; J7613

== ENCOUNTER → 2023-08-19 09:35 | Outpatient (CLI) | payer OTHER, SELFPAY ==
[2023-08-19 10:09] LABS: Hematocrit 36.3 % (36-46); Hemoglobin 12.4 g/dL (12.0-16.0); Mean Corpuscular HGB Conc 34.1 % (30-36); Mean Corpuscular Hemoglobin 31.7 PG (26-34); Platelet Count 210 X10^3/uL (150-400); Red Cell Distribution Width 15.2 % (11.6-14.8)
[2023-08-19 10:32] LABS: Alanine Aminotransferase 19 IU/L (<35); Albumin Globulin Ratio 1.1 (1.0-2.8); Alkaline Phosphatase 65 U/L (38-126); Aspartate Aminotransferase 21 IU/L (14-36); BUN Creatinine Ratio 19.3 (6-22); Bilirubin Total 0.6 mg/dL (0.2-1.3); Blood Urea Nitrogen 11 mg/dL (7-17); Calcium 8.8 mg/dL (8.4-10.2); Carbon Dioxide 27 mmol/L (22-32); Chloride 104 mmol/L (98-107); Cholesterol 165 mg/dL (140-199); Estimated Glomerular Filt Rate > 60 mL/min (>60); Globulin 3.7 g/dL (1.7-4.1); Glucose 110 mg/dL (70-100); HDL Cholesterol 26 mg/dL (40-60); HEMOLYSIS < 15 (0-50); LDL Cholesterol Calculated 109 mg/dL (<100); Potassium 4.4 mmol/L (3.4-5.1); Sodium 137 mmol/L (137-145); Total Protein 7.7 g/dL (6.3-8.2); Triglycerides 152 mg/dL (35-150)
[2023-08-19 10:59] LABS: TSH w/ Reflex to FT4 1.66 uIU/mL (0.47-4.68)
[2023-08-19 11:52] LABS: Hemoglobin A1C% w Est Avg Glu 4.8 % (4.0-6.0)
== END ==
LOC: LAB 09:36
PROVIDERS: Family Provider Internal Medicine; PCP Registered Nurse Diabetes Educator; Referring Provider Registered Nurse Diabetes Educator; Visit Provider Registered Nurse Diabetes Educator
DX: D50.9 Iron deficiency anemia, unspecified (principal); E88.810 Metabolic syndrome; E78.5 Hyperlipidemia, unspecified; R73.01 Impaired fasting glucose; I10 Essential (primary) hypertension; N92.4 Excessive bleeding in the premenopausal period
CPT/HCPCS: 36415; 80053; 80061; 83036; 84443; 85027

== ENCOUNTER → 2023-08-30 18:30 | Outpatient (CLI) | payer OTHER, SELFPAY | PROVIDERS: Family Provider Internal Medicine; PCP Registered Nurse Diabetes Educator; Visit Provider Nurse Practitioner Family | DX: R39.9 Unspecified symptoms and signs involving the genitourinary system (principal) | CPT/HCPCS: 87086 ==

== ENCOUNTER → 2024-04-12 09:52 | Outpatient (CLI) | payer OTHER, SELFPAY ==
[2024-04-12 11:18] LABS: Hematocrit 36.3 % (36-46); Hemoglobin 12.3 g/dL (12.0-16.0); Mean Corpuscular HGB Conc 33.9 % (30-36); Mean Corpuscular Hemoglobin 31.7 PG (26-34); Mean Corpuscular Volume 93.4 fL (80-100); Platelet Count 282 X10^3/uL (150-400); Red Blood Cell Count 3.89 X10^6/uL (4.0-5.2); Red Cell Distribution Width 15.5 % (11.6-14.8); White Blood Cell Count 7.6 X10^3/uL (4.5-11.0)
[2024-04-12 11:56] LABS: BUN Creatinine Ratio 20.3 (6-22); Blood Urea Nitrogen 14 mg/dL (7-17); Calcium 9.4 mg/dL (8.4-10.2); Carbon Dioxide 20 mmol/L (22-32); Chloride 106 mmol/L (98-107); Estimated Glomerular Filt Rate > 60 mL/min (>60); Glucose 118 mg/dL (70-100); HEMOLYSIS < 15 (0-50); Potassium 4.4 mmol/L (3.4-5.1); Sodium 135 mmol/L (137-145)
== END ==
PROVIDERS: Family Provider Internal Medicine; PCP Registered Nurse Diabetes Educator; Referring Provider Registered Nurse Diabetes Educator; Visit Provider Registered Nurse Diabetes Educator
DX: I10 Essential (primary) hypertension (principal); Z51.81 Encounter for therapeutic drug level monitoring
CPT/HCPCS: 36415; 80048; 85027

== ENCOUNTER → 2024-06-26 10:35 | Outpatient (CLI) | payer OTHER, SELFPAY ==
[2024-06-26 11:19] LABS: Hematocrit 38.7 % (36-46); Hemoglobin 12.9 g/dL (12.0-16.0); Mean Corpuscular HGB Conc 33.3 % (30-36); Mean Corpuscular Hemoglobin 31.1 PG (26-34); Mean Corpuscular Volume 93.3 fL (80-100); Platelet Count 247 X10^3/uL (150-400); Red Blood Cell Count 4.14 X10^6/uL (4.0-5.2); White Blood Cell Count 8.9 X10^3/uL (4.5-11.0)
[2024-06-26 11:39] LABS: Alanine Aminotransferase 22 IU/L (<35); Albumin 4.1 g/dL (3.5-5.0); Albumin Globulin Ratio 1.1 (1.0-2.8); Alkaline Phosphatase 93 U/L (38-126); Aspartate Aminotransferase 26 IU/L (14-36); BUN Creatinine Ratio 18.7 (6-22); Bilirubin Total 0.4 mg/dL (0.2-1.3); Blood Urea Nitrogen 14 mg/dL (7-17); Calcium 8.9 mg/dL (8.4-10.2); Carbon Dioxide 18 mmol/L (22-32); Chloride 110 mmol/L (98-107); Cholesterol 168 mg/dL (140-199); Estimated Glomerular Filt Rate > 60 mL/min (>60); Globulin 3.9 g/dL (1.7-4.1); Glucose 119 mg/dL (70-100); HDL Cholesterol 30 mg/dL (40-60); HEMOLYSIS < 15 (0-50); LDL Cholesterol Calculated 100 mg/dL (<100); Potassium 4.3 mmol/L (3.4-5.1); Sodium 136 mmol/L (137-145); Triglycerides 190 mg/dL (35-150)
[2024-06-26 11:44] LABS: Hemoglobin A1C% w Est Avg Glu 4.8 % (4.0-6.0)
[2024-06-26 12:10] LABS: TSH w/ Reflex to FT4 1.98 uIU/mL (0.47-4.68)
== END ==
PROVIDERS: Family Provider Internal Medicine; PCP Registered Nurse Diabetes Educator; Referring Provider Registered Nurse Diabetes Educator; Visit Provider Registered Nurse Diabetes Educator
DX: E78.5 Hyperlipidemia, unspecified; R73.01 Impaired fasting glucose; I10 Essential (primary) hypertension; D50.9 Iron deficiency anemia, unspecified; E88.810 Metabolic syndrome; E88.818 Other insulin resistance
CPT/HCPCS: 36415; 80053; 80061; 83036; 84443; 85027

== ENCOUNTER → 2024-07-13 11:08 | Outpatient (CLI) | payer OTHER, SELFPAY ==
--- NOTE | 2024-07-13 11:10 | DI.MG.S_ITS ---
BILATERAL DIGITAL SCREENING MAMMOGRAM 3D/2D WITH CAD: 07/13/2024 CLINICAL: Routine screening. Baseline exam. No prior exams were available for comparison. The breasts are almost entirely fatty (category a/<25% glandular tissue). Current study was also evaluated with a Computer Aided Detection (CAD) system. No significant masses, calcifications, or other findings are seen in either breast. IMPRESSION: NEGATIVE There is no mammographic evidence of malignancy. A 1 year screening mammogram is recommended. Based on the Tyrer Cuzick model (a risk assessment model) the patient's lifetime risk is 3.2% and her 10 year risk is 0.6%. According to the ACR, ACS, and NCCN guidelines, an annual breast MRI exam along with mammogram is recommended if the patient's lifetime risk is 20% or greater. This exam was interpreted at Station ID: [id number]. NOTE: For mammograms, a report in lay terms will be sent to the patient. Approximately 15% of breast malignancies will not be visualized mammographically. In the management of a palpable breast mass, a negative mammogram must not discourage biopsy of a clinically suspicious lesion. Electronically Signed By: Vilma saha/nicole:07/13/2024 16:14:40 letter sent: Normal Exam ACR BI-RADS Category 1: Negative
== END ==
PROVIDERS: Family Provider Internal Medicine; PCP Registered Nurse Diabetes Educator; Referring Provider Registered Nurse Diabetes Educator; Visit Provider Registered Nurse Diabetes Educator
DX: Z12.31 Encounter for screening mammogram for malignant neoplasm of breast (principal); R92.313 Mammographic fatty tissue density, bilateral breasts
CPT/HCPCS: 77063; 77067

== ENCOUNTER → 2024-08-07 10:06 | Outpatient (CLI) | payer OTHER, SELFPAY ==
[2024-08-07 11:08] LABS: BUN Creatinine Ratio 15.6 (6-22); Blood Urea Nitrogen 12 mg/dL (7-17); Calcium 9.1 mg/dL (8.4-10.2); Carbon Dioxide 22 mmol/L (22-32); Chloride 108 mmol/L (98-107); Estimated Glomerular Filt Rate > 60 mL/min (>60); Glucose 105 mg/dL (70-100); HEMOLYSIS 18 (0-50); Potassium 4.3 mmol/L (3.4-5.1); Sodium 139 mmol/L (137-145)
== END ==
PROVIDERS: Family Provider Internal Medicine; PCP Registered Nurse Diabetes Educator; Referring Provider Registered Nurse Diabetes Educator; Visit Provider Registered Nurse Diabetes Educator
DX: Z51.81 Encounter for therapeutic drug level monitoring (principal); I10 Essential (primary) hypertension
CPT/HCPCS: 36415; 80048

== ENCOUNTER → 2024-12-22 08:11 | Outpatient (CLI) | payer OTHER, SELFPAY ==
[2024-12-22 09:12] LABS: Hematocrit 37.4 % (36-46); Hemoglobin 12.5 g/dL (12.0-16.0); Mean Corpuscular HGB Conc 33.4 % (30-36); Mean Corpuscular Volume 92.9 fL (80-100); Platelet Count 254 X10^3/uL (150-400); Red Blood Cell Count 4.03 X10^6/uL (4.0-5.2); Red Cell Distribution Width 15.1 % (11.6-14.8); White Blood Cell Count 6.4 X10^3/uL (4.5-11.0)
[2024-12-22 09:19] LABS: Hemoglobin A1C% w Est Avg Glu 4.7 % (4.0-6.0)
[2024-12-22 09:42] LABS: Alanine Aminotransferase 19 IU/L (<35); Albumin 4.3 g/dL (3.5-5.0); Albumin Globulin Ratio 1.3 (1.0-2.8); Alkaline Phosphatase 98 U/L (38-126); Aspartate Aminotransferase 22 IU/L (14-36); BUN Creatinine Ratio 17.6 (6-22); Bilirubin Total 0.4 mg/dL (0.2-1.3); Blood Urea Nitrogen 12 mg/dL (7-17); Calcium 9.2 mg/dL (8.4-10.2); Carbon Dioxide 18 mmol/L (22-32); Chloride 108 mmol/L (98-107); Cholesterol 160 mg/dL (140-199); Estimated Glomerular Filt Rate > 60 mL/min (>60); Globulin 3.4 g/dL (1.7-4.1); Glucose 104 mg/dL (70-99); HDL Cholesterol 28 mg/dL (40-60); HEMOLYSIS < 15 (0-50); LDL Cholesterol Calculated 95 mg/dL (<100); Potassium 4.6 mmol/L (3.4-5.1); Sodium 139 mmol/L (137-145); Total Protein 7.7 g/dL (6.3-8.2); Triglycerides 184 mg/dL (35-150)
[2024-12-22 10:07] LABS: TSH w/ Reflex to FT4 2.87 uIU/mL (0.47-4.68)
== END ==
PROVIDERS: Family Provider Internal Medicine; PCP Registered Nurse Diabetes Educator; Referring Provider Registered Nurse Diabetes Educator; Visit Provider Registered Nurse Diabetes Educator
DX: R73.01 Impaired fasting glucose (principal); E78.5 Hyperlipidemia, unspecified; I10 Essential (primary) hypertension; D50.9 Iron deficiency anemia, unspecified
CPT/HCPCS: 36415; 80053; 80061; 83036; 84443; 85027